=== PATIENT | female | born 1945 | race Caucasian/White ===

== ENCOUNTER → 2020-02-09 | Outpatient (CLI) | payer MEDICARE | LOC: COL.RAD 09:58 | DX: M47.812 Spondylosis without myelopathy or radiculopathy, cervical region (principal); M48.02 Spinal stenosis, cervical region ==

== ENCOUNTER 2021-09-08 00:19 | Inpatient (IN) | payer MEDICARE ==
[~2021-09-08] VITALS: Ht 152.4 cm; Wt 51.2 kg
[2021-09-08] VITALS (741 sets, daily range): BP systolic 83–107; BP diastolic 48–59; PULSE 77–93; TEMP 99.2–100.8; O2SAT 83–100
[2021-09-08 00:45] LABS: HEMATOCRIT 40.2 % (37.0-47.0); HEMOGLOBIN 13.5 g/dl (12.5-16.0); MEAN CELL VOLUME 92 fl (80.0-100.0); MEAN CORPUSCULAR HEMOGLOBIN 31 pg (27-31); MEAN CORPUSCULAR HGB CONC 34 g/dl (33.0-37.0); MEAN PLATELET VOLUME 9.7 fl (7.4-10.4); PLATELET COUNT 214 K/mm3 (130-400); RED BLOOD COUNT 4.36 M/mm3 (4.10-5.30); REDCELL DISTRIBUTION WIDTH-CV 12.7 % (11.5-14.5)
[2021-09-08 01:23] LABS: ALANINE AMINOTRANSFERASE 8 U/L (0-55); ALBUMIN 3.7 gm/dL (3.4-4.8); ALKALINE PHOSPHATASE 72 U/L (40-150); ANION GAP 16 mmol/L (7-16); AST,SGOT 21 U/L (5-34); BLOOD UREA NITROGEN 24 mg/dL (10-20); CALCIUM 9.6 mg/dL (8.4-10.2); CARBON DIOXIDE 20 mmol/L (23-31); CHLORIDE 101 mmol/L (98-107); CREATININE, serum 1.96 mg/dL (0.57-1.11); GLUCOSE 83 mg/dL (70-99); POTASSIUM 4.5 mmol/L (3.5-4.5); SODIUM 137 mmol/L (136-145); TOTAL PROTEIN 6.8 gm/dL (6.2-8.1)
[2021-09-08 01:28] LABS: LIPASE 7 U/L (8-78)
[2021-09-08 01:33] LABS: BAND 47 % (0-10); LYMPHOCYTE 8 % (20.0-51.0); METAMYELOCYTE 2 % (0-0); NEUTROPHILS 40 % (42.0-75.2); PLATELET ESTIMATE NORMAL (NORMAL)
[2021-09-08 01:34] LABS: TROPONIN-I < 0.010 ng/mL (0.00-0.033)
[2021-09-08 02:38] LABS: COLLECTION METHOD CLEAN CATCH
[2021-09-08 02:40] LABS: HEMOGLOBIN 11.8 g/dl (12.5-16.0)
[2021-09-08 02:41] LABS: HEMATOCRIT 35.2 % (37.0-47.0)
[2021-09-08 02:49] LABS: INR 1.1 (0.8-3.0); PROTHROMBIN TIME 12.4 SECONDS (9.7-12.8)
[2021-09-08 02:56] LABS: BUDDING YEAST Present (NOT PRESENT); MUCOUS Present (NOT PRESENT); PH 6 (5-8); SQUAMOUS EPITHELIAL None Seen /hpf (0-10); URINE APPEARANCE Cloudy (CLEAR/HAZY); URINE BACTERIA Many /hpf (NONE SEEN); URINE BILIRUBIN Negative (NEGATIVE); URINE BLOOD 3+ (NEGATIVE); URINE COLOR Yellow (YELLOW); URINE GLUCOSE Negative (NEGATIVE); URINE KETONE 1+ (NEGATIVE); URINE LEUKOCYTE ESTERASE Negative (NEGATIVE); URINE NITRATE Negative (NEGATIVE); URINE PROTEIN(semi-quant) 2+ (NEGATIVE); URINE RBC >50 /hpf (0-2); URINE UROBILINOGEN Negative (NEGATIVE)
[2021-09-08] MEDS ORDERED: MYSOLINE 5050 MG/TAB PO (04:52)
[2021-09-08] MEDS ORDERED: LEXAPRO 10MG10 MG PO (04:52)
[2021-09-08] MEDS ORDERED: SYNTHROID0.075 MG/T PO (04:53)
[2021-09-08] MEDS ORDERED: INDERAL LA 60MG60 MG PO (04:56)
[2021-09-08] MEDS ORDERED: AMBIEN 5MG TABLE5 MG PO (04:57)
[2021-09-08 06:03] LABS: HEMOGLOBIN 11.3 g/dl (12.5-16.0)
[2021-09-08 06:24] LABS: HEMATOCRIT 33.2 % (37.0-47.0)
--- NOTE | 2021-09-08 08:20 | NUR ---
PT ADMITTED TO ICU RM 5 FROM ED FOR HYPOTENSION AND URINE RETENTION. REPORT RECEIEVED FROM ANDREW ORELLANA. PT ALERT AND ORIENTED AT TIME OF ADMISSION; DOES HAVE A HISTORY OF DEMENTIA AND SOME DIFFICULTY WITH REMEMBERING MEDICATIONS AND HISTORY. THIS NURSE WILL CONTACT PCP FOR RECORDS AND MEDICATIONS. PIV TO BILATERAL AC'S. TLC TO RIJ WITH LEVOPHED AND FLUIDS INFUSING; SEE GTT FLOW SHEET. FC TO DEPENDENT DRAINAGE; DRAINING TEA COLORED URINE. PT'S SISTER AT THE BEDSIDE AT THIS TIME.
[2021-09-08 09:05] LABS: HEMOGLOBIN 10.8 g/dl (12.5-16.0)
--- NOTE | 2021-09-08 09:29 | NUR ---
Wellness Health Coach met with patient and patient's , Kev (ph#[phone]) to complete initial intake. SW began by confirming patient's address and primary care physician. Kev expressed frustration with these questions and stated SW should already know the answers to these. Encourged Kev that SW is only confirming information listed in EMR. SW inquired about DME and ADLS. Kev advised patient uses a walker for ambulation and is normally independent with ADLS however was needing assistance right before hospitalization. SW asked about DPOA-HC and Kev advised he did not think to bring it in. SW requested Kev bring it next time he comes into the hospital and Kev states he will just have patient "sign another one". SW advised we don't prefer patient completes a new one if she already has one in place and doesn't want any changes to it. Kev stated he will try to find it at home. Kev would be patient's legal next of kin. SW will follow for discharge planning needs.
[2021-09-08] MEDS ORDERED: SINGULAIR 110 MG/TAB PO (09:41)
[2021-09-08] MEDS ORDERED: MULTI VITAMINS1 TAB PO (09:41)
[2021-09-08 13:04] LABS: HEMOGLOBIN 10.5 g/dl (12.5-16.0)
[2021-09-08 13:24] LABS: HEMATOCRIT 30.7 % (37.0-47.0)
[2021-09-08 17:02] LABS: HEMOGLOBIN 10.3 g/dl (12.5-16.0)
[2021-09-08 17:03] LABS: HEMATOCRIT 30.1 % (37.0-47.0)
--- NOTE | 2021-09-08 17:29 | NUR ---
THIS NURSE CALLED DR. RICK MIDDLETONING PT HAVING TEMP OF 100.8 AND HEADACHE. ONLY PAIN MEDICATION ORDERED AT THIS TIME IS MORPHINE. NEW ORDER FOR TYLENOL 650MG Q4HR PRN FOR PAIN AND OR FEVER.
--- NOTE | 2021-09-08 19:30 | NUR ---
Received report from ANDREW Kohler. Patient resting quietly in bed. at bedside. Denies pain or discomfort unless the abdomen is touched/palpated. Continues to receive Levophed drip; see IV drip titrations. Vitals within normal limits.
[2021-09-09] VITALS (1147 sets, daily range): BP systolic 90–116; BP diastolic 50–72; PULSE 73–95; TEMP 98.6–99.1; O2SAT 70–100
[2021-09-09 05:45] LABS: MEAN CELL VOLUME 95 fl (80.0-100.0); MEAN CORPUSCULAR HGB CONC 32 g/dl (33.0-37.0); MEAN PLATELET VOLUME 10.6 fl (7.4-10.4); PLATELET COUNT 174 K/mm3 (130-400); RED BLOOD COUNT 3.24 M/mm3 (4.10-5.30); REDCELL DISTRIBUTION WIDTH-CV 12.8 % (11.5-14.5)
[2021-09-09 05:53] LABS: CREATININE, serum 0.93 mg/dL (0.57-1.11); HEMATOCRIT 30.8 % (37.0-47.0); HEMOGLOBIN 9.9 g/dl (12.5-16.0); MEAN CORPUSCULAR HEMOGLOBIN 31 pg (27-31); POTASSIUM 3.2 mmol/L (3.5-4.5)
[2021-09-09 07:22] LABS: BAND 46 % (0-10); LYMPHOCYTE 9 % (20.0-51.0); NEUTROPHILS 45 % (42.0-75.2); PLATELET ESTIMATE NORMAL (NORMAL)
--- NOTE | 2021-09-09 19:15 | NUR ---
Received report from ANDREW Toure.
--- NOTE | 2021-09-09 20:10 | NUR ---
Patient transferred to medical room 314 at this time via wheelchair. Contact made with receiving nurse,
--- NOTE | 2021-09-09 21:14 | NUR ---
Patient arrived to medical unit from ICU around 2019. Denies having pain and discomfort. TLC to right IJ with IV fluids runnign per orders. LS CTA. HRR. Telemetry in place. BSAx4. No edema. Indwelling wise catheter with clear yellow urine via dependent drainage. Voices no questions, needs, or concerns at this time. In bed with call light within reach.
[2021-09-10 04:44] VITALS: BP 107/50; PULSE 75; TEMP 100.2
[2021-09-10 05:24] LABS: MEAN CELL VOLUME 91 fl (80.0-100.0); MEAN CORPUSCULAR HGB CONC 35 g/dl (33.0-37.0); MEAN PLATELET VOLUME 10.6 fl (7.4-10.4); PLATELET COUNT 137 K/mm3 (130-400); RED BLOOD COUNT 2.72 M/mm3 (4.10-5.30); REDCELL DISTRIBUTION WIDTH-CV 12.5 % (11.5-14.5)
[2021-09-10 05:26] LABS: HEMATOCRIT 24.8 % (37.0-47.0); HEMOGLOBIN 8.6 g/dl (12.5-16.0); MEAN CORPUSCULAR HEMOGLOBIN 32 pg (27-31)
--- NOTE | 2021-09-10 05:27 | NUR ---
Patient had fever this morning. Given PRN Acetaminophen per orders. Denies having pain and discomfort. IV fluids continue per orders. Voices no questions, needs, or concerns at this time. In bed with call light within reach. Bed alarm on.
[2021-09-10 05:39] LABS: ALBUMIN 2.1 gm/dL (3.4-4.8); BILIRUBIN,TOTAL 0.5 mg/dL (0.2-1.2); CALCIUM 8.3 mg/dL (8.4-10.2); CREATININE, serum 0.7 mg/dL (0.57-1.11); MAGNESIUM 1.4 mg/dL (1.6-2.6); POTASSIUM 3.2 mmol/L (3.5-4.5); TOTAL PROTEIN 4.8 gm/dL (6.2-8.1)
[2021-09-10 05:40] LABS: BAND 4 % (0-10); LYMPHOCYTE 5 % (20.0-51.0); NEUTROPHILS 87 % (42.0-75.2); PLATELET ESTIMATE DECREASED (NORMAL)
[2021-09-10 07:20] VITALS: BP 111/52; PULSE 66; TEMP 98.3
--- NOTE | 2021-09-10 09:06 | NUR ---
ALERT AND OX4. SETTING UP EATING BREAKFAST. AM MEDS/ANTIBOTICS GIVEN. PT DENIES SOA, CHEST PAIN OR DIZZY. REG BOWEL MOVEMENT TO INCLUDE DIARHEA. POC DISCUSSED. CALL LIGHT WI REACH.
[2021-09-10 11:30] VITALS: BP 127/72; PULSE 69; TEMP 98
--- NOTE | 2021-09-10 11:38 | NUR ---
The patient is walking 3 ft with PT. PT is recommending home with family if able, but will depend on progress. OT is recommending post-acute rehab, possibly [facility]. ANN met with the patient and her sister, Glenys, to discuss their recommendation. The patient reports that she would prefer to return home and do home health. Her sister was supportive of her decision. ANN provided them with Medicare.gov's list of home health agencies that serve [place]. The patient and her sister are open to whichever agency that is in-network with the patient's Medicare [employer] and would like to know if she would have any wih-sk-qxlhie costs. They are open to trying [facility] or [facility]. ANN contacted the patient's , Kev, to review the above. Kev also agrees with home health and is not interested in post-acute rehab at this time. ANN contacted and faxed a referral to [facility] and [facility]. Awaiting screens. *Discharge plan: home with and home health*
--- NOTE | 2021-09-10 11:58 | NUR ---
DR ANGUIANO CALLED FOR CONSULT- MESSAGE LEFT.
--- NOTE | 2021-09-10 17:57 | NUR ---
PT HAD A UNEVENTFUL DAY. SPOUSE AND KIDS AT BEDSIDE TODAY. ANTIBOTICS, FLUIDS AND MAG,POTASIUM REPLACED TODAY. HEADACHE TX W NO, VSS. CALL LIGHT WI REACH. NEEDS MET.
[2021-09-10 18:02] VITALS: BP 129/65; PULSE 77; TEMP 99.3
[2021-09-10 20:10] VITALS: BP 112/53; PULSE 77; TEMP 98.8
--- NOTE | 2021-09-10 20:47 | NUR ---
THE PATIENT HAS C/O PAIN IN HER LOWER ABD, SHE HAD TYLENOL AT 1745, INFORMED HER SHE COULD HAVE MORE TYLENOL AT 5. SHE STATES HER HEADACHE WENT AWAY SO SHE WOULD NOT BE NEEDING ANY TYLENOL. SHE ALSO STATES SHE GENERALLY HAS A HIGH TOLERANCE FOR PAIN, BUT THINKS THAT HAS DECREASED THIS ADMISSION. VSS AT THIS TIME. LUNG SOUNDS ARE CTA, AND HEART TONES S1&S2 AUDIBLE. THE PATIENT DENIES ANY OTHER CONCERNS AT THIS TIME. WILL CONTINUE TO MONITOR THROUGH THE NIGHT.
[2021-09-10 23:57] VITALS: BP 132/63; PULSE 69; TEMP 98.9
[2021-09-11 04:46] VITALS: BP 134/68; PULSE 66; TEMP 99
[2021-09-11 06:44] LABS: BASO % 0.4 % (0.0-2.0); EOS # 0.1 K/mm3 (0.0-0.7); EOS % 1.5 % (0.0-4.0); GRAN # 4.3 K/mm3 (1.4-6.5); GRAN % 82.6 % (42.2-75.2); LYMPH # 0.5 K/mm3 (1.2-3.4); LYMPH % 9.5 % (20.0-51.0); MEAN CELL VOLUME 93 fl (80.0-100.0); MEAN CORPUSCULAR HGB CONC 33 g/dl (33.0-37.0); MEAN PLATELET VOLUME 10.3 fl (7.4-10.4); MONO # 0.3 K/mm3 (0.1-0.6); MONO % 5.2 % (1.7-9.3); PLATELET COUNT 153 K/mm3 (130-400); REDCELL DISTRIBUTION WIDTH-CV 12.6 % (11.5-14.5)
[2021-09-11 06:54] LABS: MEAN CORPUSCULAR HEMOGLOBIN 31 pg (27-31)
[2021-09-11 07:02] LABS: CALCIUM 8.5 mg/dL (8.4-10.2); CREATININE, serum 0.63 mg/dL (0.57-1.11); MAGNESIUM 1.8 mg/dL (1.6-2.6); POTASSIUM 3.6 mmol/L (3.5-4.5)
[2021-09-11 07:47] VITALS: BP 143/68; PULSE 64; TEMP 98.3
--- NOTE | 2021-09-11 11:15 | NUR ---
Aakash, at [facility], reports that they are in-network with the patient's insurance and the patient would not have any [id number] costs. They would be able to accept the patient. Jason, at [facility], reports that they are able to accept the patient. The patient may be able to discharge tomorrow, 09/12. ANN met with the patient, her , and daughter, to update and follow up on home health preference. The patient and her would like to use [facility]. SW presented and read the IM form outloud to the patient and her . The patient's , Kev, verbalized understanding and signed the form. SW provided him with a copy. *Discharge plan: home with and home health*
[2021-09-11 13:14] VITALS: BP 133/64; PULSE 64; TEMP 98.9
--- NOTE | 2021-09-11 14:36 | NUR ---
PT HAS HAD A UNEVENTFUL DAY. DC PLAN DISCUSSED. CATH CARE TAUGHT, EDUCATION PRINTED. WILL POSSIBLE DC W [facility] H/H TOMORROW. WILL GO HOME W KINNEY CATH. NEEDS MET.
[2021-09-11 15:34] VITALS: BP 139/63; PULSE 67; TEMP 99.5
[2021-09-11 20:38] VITALS: BP 132/68; PULSE 67; TEMP 98.7
--- NOTE | 2021-09-11 22:32 | NUR ---
Denies having pain and discomfort. Triple lumen to right IJ. Continues on ABX per orders. Indwelling wise catheter with clear yellow urine via dependent drainage. Voices no questions, needs, or concerns at this time. In bed with call light within reach.
[2021-09-11 23:54] VITALS: BP 140/72; PULSE 67; TEMP 98.7
[2021-09-12 04:07] VITALS: BP 129/64; PULSE 64; TEMP 97.8
--- NOTE | 2021-09-12 05:55 | NUR ---
Recieved IV ABX per orders. Denies having pain and discomfort. Avery catheter with clear yellow urine. Voices no questions, needs, or concerns at this time. In bed with call light within reach.
[2021-09-12 06:19] LABS: BASO % 0.3 % (0.0-2.0); EOS # 0.1 K/mm3 (0.0-0.7); EOS % 2.5 % (0.0-4.0); GRAN # 2.8 K/mm3 (1.4-6.5); GRAN % 70.1 % (42.2-75.2); LYMPH # 0.7 K/mm3 (1.2-3.4); LYMPH % 16.8 % (20.0-51.0); MEAN CELL VOLUME 90 fl (80.0-100.0); MEAN CORPUSCULAR HGB CONC 34 g/dl (33.0-37.0); MEAN PLATELET VOLUME 9.9 fl (7.4-10.4); MONO # 0.4 K/mm3 (0.1-0.6); MONO % 9.5 % (1.7-9.3); PLATELET COUNT 194 K/mm3 (130-400); RED BLOOD COUNT 3.18 M/mm3 (4.10-5.30); REDCELL DISTRIBUTION WIDTH-CV 12.4 % (11.5-14.5)
[2021-09-12 06:43] LABS: HEMATOCRIT 28.6 % (37.0-47.0); HEMOGLOBIN 9.8 g/dl (12.5-16.0); MEAN CORPUSCULAR HEMOGLOBIN 31 pg (27-31)
[2021-09-12 06:49] LABS: CREATININE, serum 0.63 mg/dL (0.57-1.11); MAGNESIUM 1.5 mg/dL (1.6-2.6); POTASSIUM 3.8 mmol/L (3.5-4.5)
[2021-09-12 08:30] VITALS: BP 139/61; PULSE 72; TEMP 95
[2021-09-12] MEDS ORDERED: CIPRO 500MG TA500 MG PO (09:38)
[2021-09-12] MEDS ORDERED: MAG-OX 400400 MG/TAB PO (09:40)
--- NOTE | 2021-09-12 10:11 | NUR ---
The patient is to discharge back home with her today, 09/12, and [facility] health [facility]PT[facility]OT from [facility]. ANN attempted to notify Aakash at [facility]. ANN left her a voicemail and faxed [facility] the orders. No additional needs at this time.
--- NOTE | 2021-09-12 14:49 | NUR ---
PATIENT VSS, ORIENT AND ALERT, WITH C/O NAUSEA AND DIZZINESS WITH CHANGE OF POSITION, P.O ZOFRA GIVEN PRIOR TO DC. PICC LINE REMOVED EXIT SITE APPLIED PRESSURE WITH A GAUZE FOR OVER 15MINS THEN SECURED WITH TEGARDEM.PICC LINE TIP INTACT.PT ESCORTED OUT OF THE UNIT BY THE UNIT STAFF.ACCOMPANIED HOME BY THE SPOUSE ANS AFRIEND.DC HOME WITH [facility].PT DC HOME WITH A KINNEY CATHETER INSTRUCTION ON CARE OF THE KINNEY CATHETER GIVEN, VERBALIZE UNDERSTANDING.
--- NOTE | 2021-09-12 15:00 | NUR ---
PT INSTRUCTED TO LEAVE THE DRESSING INTACT FOR 24HRS.REMOVE DRESSING AFTER 24HRS,
== END 2021-09-12 13:30 | disposition home health service (06) | DRG 871 ==
LOC: COL.ER 00:19 → ICU 03:28 → MEDICAL 09-09 19:44
PROVIDERS: Emergency Medicine; Internal Medicine; Student in an Organized Health Care Education/Training Program; ADMIT Internal Medicine
PROC: 02HV33Z Insertion of Infusion Device into Superior Vena Cava, Percutaneous Approach (ICD-10-PCS; principal; 2021-09-08)
DX: A41.53 Sepsis due to Serratia (principal); R57.1 Hypovolemic shock; N39.0 Urinary tract infection, site not specified; R18.8 Other ascites; N17.9 Acute kidney failure, unspecified; I31.3 Pericardial effusion (noninflammatory); G72.81 Critical illness myopathy; D62 Acute posthemorrhagic anemia; F03.90 Unspecified dementia, unspecified severity, without behavioral disturbance, psychotic disturbance, mood disturbance, and anxiety; R31.9 Hematuria, unspecified; F17.210 Nicotine dependence, cigarettes, uncomplicated; Z20.822 Contact with and (suspected) exposure to COVID-19; I10 Essential (primary) hypertension; E03.9 Hypothyroidism, unspecified; F32.A Depression, unspecified; R26.89 Other abnormalities of gait and mobility; I95.9 Hypotension, unspecified; E83.42 Hypomagnesemia; B37.9 Candidiasis, unspecified; Z79.890 Hormone replacement therapy; Z91.012 Allergy to eggs; Z88.2 Allergy status to sulfonamides; Z23 Encounter for immunization
CPT/HCPCS: J0692; J0696; J2270; J2405; J2543; J3475; J3480; J7030; J7060; J7120